=== PATIENT | male | born 1970 | race African-American/Black ===

== ENCOUNTER 2019-02-26 06:50 | Emergency (ER) | payer BC ==
[~2019-02-26] VITALS: Ht 180.3 cm; Wt 117.9 kg
[2019-02-26] MEDS ORDERED: PEPCID20 MG PO (08:49)
[2019-02-26] MEDS ORDERED: PREDNISONE 20 M20 MG PO (08:49)
[2019-02-26 09:20] VITALS: BP 168/72
== END 2019-02-26 09:20 | disposition home or self-care (01) ==
LOC: ER 06:50
DX: T78.3XXA Angioneurotic edema, initial encounter (principal); J02.9 Acute pharyngitis, unspecified; I10 Essential (primary) hypertension